=== PATIENT | male | born 1940 | race Caucasian/White ===

== ENCOUNTER 2019-08-17 23:45 | Inpatient (IN) | payer MEDICARE, BC ==
[~2019-08-17] VITALS: Ht 177.8 cm; Wt 66.2 kg
[~2019-08-17 23:45] MED LIST: ATOR40TA PO; LEVO50TA8 PO; SUCR1ORA4 PO; VALS320T2 PO
--- NOTE | 2019-08-18 00:13 | NUR ---
SATISH, PER SON, PT IS RECENTLY INCONTINENT, "VERY SHAKY AND WEAK", PT IS BEING SEEN BY A NUEROLOGIST "N THE PROCESS OF BEING DIAGNOSED WITH DEMENTIA", RESTING COMFORTABLY IN BED 1 AWAITING MED EVAL
--- NOTE | 2019-08-18 01:26 | NUR ---
BLOOD DRAWN, URINE COLLECTED AND SET TO LAB
[2019-08-18 01:31] LABS: BASOPHILS % (AUTO) 0.7 % (0.0-2.0); EOSINOPHILS % (AUTO) 2.7 % (0.0-6.0); HEMATOCRIT 37 % (39-51); HEMOGLOBIN 12.3 g/dL (13.5-17.5); LYMPHOCYTES # (AUTO) 1.7 /CMM (0.8-4.8); LYMPHOCYTES % (AUTO) 26.3 % (20.0-44.0); MEAN CORPUSCULAR HGB CONC 34 g/dl (31.0-36.0); MEAN CORPUSCULAR VOLUME 90 fL (80-96); MONOCYTES # (AUTO) 0.7 /CMM (0.1-1.30); MONOCYTES % (AUTO) 11.3 % (2.0-12.0); NEUTROPHILS # (AUTO) 3.8 /CMM (1.8-8.9); PLATELET COUNT (AUTO) 177 /CMM (150-450); RED BLOOD CELL COUNT(AUTO) 4.03 MIL/uL (4.5-6.0); WHITE BLOOD COUNT (AUTO) 6.4 K/uL (4.3-11.0)
[2019-08-18 01:34] LABS: APPEARANCE,URINE Clear (CLEAR); BILIRUBIN,URINE Negative (NEGATIVE); BLOOD, URINE Trace-intact Ery/uL (NEGATIVE); COLOR,URINE Yellow (YELLOW); KETONES,URINE Negative (NEGATIVE); LEUKOCYTE ESTERASE ,URINE Negative (NEGATIVE); NITRITE, URINE Negative (NEGATIVE); PH,URINE 8.5 (5.0-8.0); PROTEIN,URINE 100 mg/dl (NEGATIVE); UGLUCOSE Negative (NEGATIVE); UROBILINOGEN,URINE 0.2 EU/dL (0.2)
[2019-08-18 02:04] LABS: CALCIUM, SERUM 9.6 mg/dL (8.5-10.1); CHLORIDE 111 mmol/L (98-107); CREATININE 2.9 mg/dL (0.6-1.3); GLUCOSE 132 mg/dL (74-106); SODIUM SERUM 156 mmol/L (136-145); UREA NITROGEN, BLOOD 58 mg/dL (7-18)
[2019-08-18 02:05] LABS: CARBON DIOXIDE 42 mmol/L (21-32)
[2019-08-18 02:10] LABS: ALANINE AMINOTRANSFERASE 27 U/L (12-78); ALBUMIN 4.1 g/dL (3.4-5.0); ALCOHOL, BLOOD < 3 mg/dL (0-0); ALKALINE PHOSPHATASE 69 U/L (46-116); ASPARTATE AMINOTRANSFERASE 28 U/L (15-37); BILIRUBIN,DIRECT 0.2 mg/dL (0.0-0.2); BILIRUBIN,TOTAL 0.4 mg/dL (0.2-1.0); TOTAL PROTEIN, SERUM 7.7 g/dL (6.4-8.2)
[2019-08-18 02:13] LABS: BACTERIA,URINE None seen /HPF (None Seen); RBC,URINE 0-2 /HPF (0-2); SQUAMOUS EPITHELIAL CELL,UR Few /HPF (None Seen); WBC,URINE 0-2 /HPF (0-3)
[2019-08-18 02:32] LABS: THYROID STIMULATING HORMONE 1.034 uIU/mL (0.358-3.74)
[2019-08-18] MEDS ORDERED: IV 1/2NS 1000 ML 1,000 ML IV PRN (03:18)
--- NOTE | 2019-08-18 03:29 | NUR ---
ER MD AT BEDSIDE TALKING TO PT AND PT SON.
[2019-08-18] MEDS ORDERED: ACETAMINOPHEN 325 MG TABLET PO PRN (03:30)
[2019-08-18] MEDS ORDERED: MAG HYDROX/AL HYDROX/SIMETH 30 ML UDC PO PRN (03:30)
[2019-08-18] MEDS ORDERED: MAGNESIUM HYDROXIDE 30 ML UDC PO PRN (03:30)
[2019-08-18] MEDS ORDERED: Z GUARD REMEDY 2 OZ OINT TP PRN (03:30)
[2019-08-18] MEDS ORDERED: ONDANSETRON HCL/PF 4 MG/2 ML VIAL IVP PRN (03:30)
--- NOTE | 2019-08-18 03:31 | NUR ---
TELE [id number]
--- NOTE | 2019-08-18 04:26 | NUR ---
CALLED IN REPORT TO KIMBERLY HERNANDEZ
--- NOTE | 2019-08-18 04:53 | NUR ---
TRANSPORTED PT TO [facility]LO[facility]
[2019-08-18 05:03] VITALS: BP 157/86
[2019-08-18 05:04] VITALS: BP 154/86
--- NOTE | 2019-08-18 05:15 | NUR ---
RN NOTES ADMITTED PATIENT FROM ER, ACCOMPANIED BY IZA MA JR. PATIENT IS ALERT ORIENTED X1, EPISODES OF CONFUSION, INITIAL ASSESSMENT DONE, ADMISSION INITIATED, ORIENTED PATIENT TO UNIT, SAFETY MEASURES IN PLACE, ASPIRATION PRECAUTION EMPHASIZED, IV ACCESS INTACT AND PATENT, WILL CONTINUE TO MONITOR ACCORDINGLY.
--- NOTE | 2019-08-18 07:37 | NUR ---
RN NOTES ALL NEEDS ATTENDED, SAFETY MEASURES EMPHASIZED, RESTING AT THIS TIME. ENDORSED TO AM NURSE FOR CONTINUITY OF CARE.
[2019-08-18 08:00] VITALS: BP 155/75
--- NOTE | 2019-08-18 08:00 | NUR ---
RN NOTES RECEIVED PATIENT IN THE BED TELE [id number] NO ACUTE RESPIRATORY DISTRESS, AWAKE, PATIENT A/O X1, CONFUSED, NEED CONSTANT REDIRECTION. PATIENT DEMENTED, NO COMPLAINING OF PAIN, PATIENT HAS IV ACCESS ON RIGHT FA INFUSING NS AT 50 ML/HR. PATIENT HAS DISCOLORATION OF LEFT ARM BECAUSE OF FALL AT HOME TWO DAYS AGO. ADMINISTERED SCHEDULED MEDICATION. PATIENT INCONTINENT BOWEL AND BLADER WEARING DIAPER, NEEDS ATTENDED AND ANTICIPATED, CALL LIGHT WITHIN TO REACH, SAFETY PRECAUTION MAINTAINED ALL THE TIME.
[2019-08-18] MEDS: SUCRALFATE 1 G/10 ML UDC PO SCH (08:42)
[2019-08-18] MEDS: LEVOTHYROXINE SODIUM 50 MCG TABLET PO SCH (08:42)
[2019-08-18] MEDS: ATORVASTATIN 40 MG TABLET PO SCH (08:42)
[2019-08-18] MEDS: IV 1/2NS 1000 ML 1,000 ML IV PRN (08:45)
--- NOTE | 2019-08-18 10:00 | NUR ---
rn notes d/c tele per Dr Gibbons, patient med/surge at this time.
--- NOTE | 2019-08-18 12:00 | NUR ---
RN NOTES SEEN PATIENT BY HOSPITALIST HOLLY HUMAN RESOURCES TALENT MANAGER, FAMILY NEXT TO THE BED, PATIENT HAS NEW ORDER CT OF HEAD COKEMAN BY PLANT [employer]ER.
--- NOTE | 2019-08-18 12:20 | NUR ---
RN NOTES PATIENT BACK FROM CT AT THIS TIME, EATING LUNCH NO ACUTE RESPIRATORY DISTRESS. INFUSING NS AT 80 ML/HR ON RIGHT FA INTACT. CONTINUED MONITORING.
--- NOTE | 2019-08-18 18:30 | NUR ---
RN NOTES PATIENT HAS A SUNDOWN SYNDROME , CONFUSED, TRYING TO CLIME OUT OF BED. NEED CONSTANT REDIRECTION. 1:1 SITTER NEXT TO THE BED FOR SAFETY. INFUSING NS1/2 80 ML/HR ON RIGHT FA INTACT, CALL LIGHT WITHIN TO REACH. ENDORSED ONCOMING NURSE FOLLOW PLAN OF CARE.
--- NOTE | 2019-08-18 19:30 | NUR ---
MS RN OPENING NOTE RECEIVED PATIENT IN BED. A./O X1, VERY CONFUSED. TOLERATING ROOM AIR. RESPIRATIONS ARE EVEN AND UNLABORED. NO SIGN OF SOB. DENIES PAIN AT THIS TIME. NO APPARENT DISTRESS. IV ACCESS IN RFA #20 RUNNING 1/2NS@80ML/HR. BED IS LOW AND LOCKED, SIDE RAILS UP X3, SITTER AT BEDSIDE. CALL LIGHT WITHIN REACH. WILL CONTINUE TO MONITOR.
[2019-08-18 20:00] VITALS: BP 14/59
[2019-08-19] MEDS: IV 1/2NS 1000 ML 1,000 ML IV PRN ×2 (02:23→12:57)
--- NOTE | 2019-08-19 06:21 | NUR ---
MS RN CLOSING NOTE PATIENT IN BED. A./O X1, VERY CONFUSED. REMAINS TOLERATING ROOM AIR. RESPIRATIONS ARE EVEN AND UNLABORED. NO SOB NOTED. NO C/O PAIN. NO DISTRESS NOTED. IV ACCESS MAINTAINED IN RFA #20 RUNNING 1/2NS@80ML/HR. BED REMAINS LOW AND LOCKED, SIDE RAILS UP X3, SITTER AT BEDSIDE. CALL LIGHT WITHIN REACH. WILL ENDORSE TO NEXT SHIFT FOR ESAU.
[2019-08-19 07:00] LABS: BASOPHILS % (AUTO) 0.4 % (0.0-2.0); EOSINOPHILS % (AUTO) 3.6 % (0.0-6.0); HEMATOCRIT 31 % (39-51); HEMOGLOBIN 10.5 g/dL (13.5-17.5); LYMPHOCYTES # (AUTO) 1.9 /CMM (0.8-4.8); MEAN CORPUSCULAR HGB CONC 34 g/dl (31.0-36.0); MEAN CORPUSCULAR VOLUME 91 fL (80-96); MONOCYTES # (AUTO) 0.8 /CMM (0.1-1.30); MONOCYTES % (AUTO) 10.8 % (2.0-12.0); NEUTROPHILS % (AUTO) 57.2 % (43.0-81.0); PLATELET COUNT (AUTO) 137 /CMM (150-450); RED BLOOD CELL COUNT(AUTO) 3.39 MIL/uL (4.5-6.0); WHITE BLOOD COUNT (AUTO) 6.9 K/uL (4.3-11.0)
[2019-08-19 07:15] LABS: CHOLESTEROL 98 mg/dL (<200); CREATINE KINASE, TOTAL 154 U/L (39-308); HDL CHOLESTEROL 43 mg/dL (40-60); LDL 44 mg/dL (0-99); THYROID STIMULATING HORMONE 0.879 uIU/mL (0.358-3.74); TRIGLYCERIDES 51 mg/dL (30-150)
[2019-08-19 08:00] VITALS: BP 130/52
--- NOTE | 2019-08-19 08:00 | NUR ---
m/s gis professor: initial assessment received pt in bed awake, alert and oriented to self only with confusion and disorientation to time, place, and situation. reality orientation provided prn. sitter at bedside for safety. vss; afebrile. will continue to monitor.
[2019-08-19 08:55] LABS: ALANINE AMINOTRANSFERASE 18 U/L (12-78); ALBUMIN 3.2 g/dL (3.4-5.0); ALKALINE PHOSPHATASE 56 U/L (46-116); ASPARTATE AMINOTRANSFERASE 26 U/L (15-37); BILIRUBIN,TOTAL 0.5 mg/dL (0.2-1.0); CALCIUM, SERUM 8.9 mg/dL (8.5-10.1); CARBON DIOXIDE 25 mmol/L (21-32); CHLORIDE 109 mmol/L (98-107); CREATININE 2.7 mg/dL (0.6-1.3); GLUCOSE 88 mg/dL (74-106); MAGNESIUM 1.8 mg/dL (1.8-2.4); PHOSPHORUS 2.8 mg/dL (2.5-4.9); POTASSIUM 3.7 mmol/L (3.5-5.1); SODIUM SERUM 147 mmol/L (136-145); TOTAL PROTEIN, SERUM 6.2 g/dL (6.4-8.2); UREA NITROGEN, BLOOD 43 mg/dL (7-18)
--- NOTE | 2019-08-19 09:30 | NUR ---
m/s cable technician: md visit seen and examined by dr. madrigal at this time.
[2019-08-19] MEDS: LEVOTHYROXINE SODIUM 50 MCG TABLET PO SCH (09:43)
[2019-08-19] MEDS: SUCRALFATE 1 G/10 ML UDC PO SCH (09:43)
[2019-08-19] MEDS: ATORVASTATIN 40 MG TABLET PO SCH (09:43)
--- NOTE | 2019-08-19 11:00 | NUR ---
m/s magazine editor: nephro f/u family at bedside. dr. enamorado at bedside and talking to family. all questions and concerns from sister and son answered.
--- NOTE | 2019-08-19 11:30 | NUR ---
m/s director food and beverage: neuro consult seen and examined by luis rodrigues (zigzag elastic attacher). family remains at bedside. all question and concerns answered by neurologist.
[2019-08-19 13:27] LABS: APPEARANCE,URINE Clear (CLEAR); BILIRUBIN,URINE Negative (NEGATIVE); BLOOD, URINE Negative Ery/uL (NEGATIVE); COLOR,URINE Yellow (YELLOW); KETONES,URINE Negative (NEGATIVE); LEUKOCYTE ESTERASE ,URINE Negative (NEGATIVE); NITRITE, URINE Negative (NEGATIVE); PH,URINE 8.5 (5.0-8.0); PROTEIN,URINE >=300 mg/dl (NEGATIVE); UGLUCOSE Negative (NEGATIVE); UROBILINOGEN,URINE 0.2 EU/dL (0.2)
--- NOTE | 2019-08-19 14:00 | NUR ---
m/s condominium manager: notes resting comfortable in bed. pt remains confused and disoriented. reality orientation provided prn. sitter remains at bedside.
[2019-08-19 16:25] LABS: CREATININE, URINE 81.4 MG/DL (30.0-125.0); URINE TOTAL PROTEIN 152.1 mg/dL (0-11.9)
[2019-08-19 17:00] VITALS: BP 154/107
[2019-08-19 17:14] LABS: EOSINOPHIL,URINE None Seen
--- NOTE | 2019-08-19 18:50 | NUR ---
m/s ssis etl developer: notes son came back to visit for a few minutes and then left. pt resting comfortable. needs attended. no distress noted.
--- NOTE | 2019-08-19 19:02 | NUR ---
Patient awake, A/O x 2 with episodes of confusion. IV fluid running as ordered, IV line remains intact and patent. Patient on room air , no distress noted, no complain of pain. All needs attended, patient kept comfortable. Sitter at bedside. Safety precautions observed. Will endorse to next shift for ESAU.
[2019-08-19 20:00] VITALS: BP 136/78
--- NOTE | 2019-08-19 20:30 | NUR ---
RN MS OPENING NOTES RECEIVED PATIENT IN BED AWAKE, ALERT AND ORIENTED X1, CONFUSED. VERBALLY RESPONSIVE. BREATHING EVEN AND UNLABORED. NO SOB NOTED. ON ROOM AIR. DENIES PAIN OR DISCOMFORT. IV INTACT AND PATENT WITH IVF INFUSING. SITTER AT BEDSIDE FOR SAFETY. ALL OTHER NEEDS ATTENDED TO. SAFETY MEASURES IN PLACE. CALL LIGHT WITHIN REACH. WILL CONTINUE TO MONITOR.
[2019-08-20] MEDS: IV 1/2NS 1000 ML 1,000 ML IV PRN ×2 (03:10→16:16)
[2019-08-20 06:34] LABS: BASOPHILS % (AUTO) 0.5 % (0.0-2.0); EOSINOPHILS % (AUTO) 4.7 % (0.0-6.0); HEMATOCRIT 34 % (39-51); HEMOGLOBIN 11.2 g/dL (13.5-17.5); LYMPHOCYTES # (AUTO) 1.9 /CMM (0.8-4.8); LYMPHOCYTES % (AUTO) 30.2 % (20.0-44.0); MEAN CORPUSCULAR HGB CONC 33 g/dl (31.0-36.0); MEAN CORPUSCULAR VOLUME 91 fL (80-96); MONOCYTES # (AUTO) 0.6 /CMM (0.1-1.30); MONOCYTES % (AUTO) 9.9 % (2.0-12.0); NEUTROPHILS # (AUTO) 3.5 /CMM (1.8-8.9); NEUTROPHILS % (AUTO) 54.7 % (43.0-81.0); PLATELET COUNT (AUTO) 128 /CMM (150-450); RED BLOOD CELL COUNT(AUTO) 3.71 MIL/uL (4.5-6.0); WHITE BLOOD COUNT (AUTO) 6.4 K/uL (4.3-11.0)
[2019-08-20 06:45] LABS: CALCIUM, SERUM 8.9 mg/dL (8.5-10.1); CARBON DIOXIDE 27 mmol/L (21-32); CHLORIDE 108 mmol/L (98-107); CREATININE 2.7 mg/dL (0.6-1.3); GLUCOSE 89 mg/dL (74-106); MAGNESIUM 1.6 mg/dL (1.8-2.4); PHOSPHORUS 3.1 mg/dL (2.5-4.9); POTASSIUM 3.7 mmol/L (3.5-5.1); SODIUM SERUM 143 mmol/L (136-145); UREA NITROGEN, BLOOD 43 mg/dL (7-18)
--- NOTE | 2019-08-20 06:52 | NUR ---
RN MS CLOSING NOTES PATIENT RESTING IN BED. NO ACUTE CHANGES THROUGHOUT SHIFT. BREATHING EVEN AND UNLABORED. NO SOB NOTED. ON ROOM AIR. DENIES PAIN OR DISCOMFORT. IV INTACT AND PATENT WITH IVF INFUSING. SITTER AT BEDSIDE FOR SAFETY. ALL OTHER NEEDS ATTENDED TO. SAFETY MEASURES IN PLACE. CALL LIGHT WITHIN REACH. WILL ENDORSE TO ONCOMING NURSE FOR ESAU.
[2019-08-20] MEDS: SUCRALFATE 1 G/10 ML UDC PO SCH (08:02)
[2019-08-20] MEDS: LEVOTHYROXINE SODIUM 50 MCG TABLET PO SCH (08:02)
[2019-08-20] MEDS: ATORVASTATIN 40 MG TABLET PO SCH (08:02)
--- NOTE | 2019-08-20 09:44 | NUR ---
RN MS OPENING NOTES Patient received on room air, no sob noted, patient a/o x2, mild confusion. RFA #20 with 1/2 NS @ 80 ml per hour. Patient with 1:1 sitter at all times. Bed at the lowest setting, call light within reach, side rails up x2.
[2019-08-20 11:07] LABS: *SPE A/G RATIO 1.4 (0.7-1.7); *SPE ALBUMIN 3.3 g/dL (2.9-4.4); *SPE ALPHA-1-GLOBULIN 0.2 g/dL (0.0-0.4); *SPE ALPHA-2-GLOBULIN 0.5 g/dL (0.4-1.0); *SPE BETA GLOBULIN 0.7 g/dL (0.7-1.3); *SPE GLOBULIN, TOTAL 2.4 g/dL (2.2-3.9); *SPE M-SPIKE Not Observed g/dL (Not Observed)
[2019-08-20 12:07] LABS: PTH, INTACT 139 pg/mL (15-65)
--- NOTE | 2019-08-20 18:13 | NUR ---
RN MS CLOSING NOTES Patient remains on room air, no sob noted, patient remains a/o x1. Awaiting neuro eval at this time. Patient's bed remains at the lowest setting, call light within reach, side rails up x2, patient with 1:1 sitter at all times. Will give report to NOC RN for ESAU bedside.
--- NOTE | 2019-08-20 19:15 | NUR ---
RN OPENING NOTES RECEIVED PATIENT FROM ERNESTINE, DAVID, IN BED, AWAKE RESTING COMFORTABLY. PATIENT IS A/O X 1, CONFUSED. NO SIGNS OF RESPIRATORY DISTRESS. NO SHORTNESS OF BREATH, ON ROOM AIR, TOLERATING WELL. PATIENT DENIES PAIN OR DISCOMFORT AT THIS TIME. IV SITE INTACT AND PATENT WITH NO INFECTION/INFILTRATION, WITH IVF INFUSING. ALL NEEDS MET AT THIS TIME. SITTER AT BED SIDE FOR SAFETY. SAFETY PRECAUTIONS IMPLEMENTED; CALL LIGHT WITHIN REACH, BED LOWEST POSITION, BED LOCKED, SIDE RAILS UP X2. WILL CONTINUE TO MONITOR.
[2019-08-20 20:00] VITALS: BP 139/68
[2019-08-21] MEDS: IV 1/2NS 1000 ML 1,000 ML IV PRN (00:30)
--- NOTE | 2019-08-21 06:49 | NUR ---
RN CLOSING NOTES PATIENT IS CURRENTLY RESTING IN BED, EASILY AROUSABLE TO VOICE. NO ACUTE CHANGES THROUGHOUT THE SHIFT. NO SIGNS OF RESPIRATORY DISTRESS. BREATHING EVEN AND UNLABORED, NO SOB NOTED, TOLERATING ROOM AIR. NO SIGNS OF FACIAL GRIMACING OR DISCOMFORT INDICATING PAIN. IV SITE INTACT AND PATENT WITH IVF INFUSING WELL, NO SIGNS OF INFECTION/INFILTRATION. SITTER AT BED SIDE FOR SAFETY. ALL NEEDS MET AT THIS TIME. SAFETY PRECAUTIONS IMPLEMENTED; CALL LIGHT WITHIN REACH, BED LOWEST POSITION, BED LOCKED, SIDE RAILS UP X2. WILL ENDORSE TO DAYSHIFT NURSE FOR CONTINUITY OF CARE.
[2019-08-21 07:30] VITALS: BP 139/78
--- NOTE | 2019-08-21 07:49 | NUR ---
RN MS OPENING NOTES Patient received on room air, no sob noted, sitter bedside at all times, sleeping comfortably and easily awakened. R FA #20 with 1/2 NS@80 ml per hour. Bed at the lowest setting, call light within reach, side rail up x2.
[2019-08-21] MEDS: ATORVASTATIN 40 MG TABLET PO SCH (08:24)
[2019-08-21] MEDS: SUCRALFATE 1 G/10 ML UDC PO SCH (08:24)
[2019-08-21] MEDS: LEVOTHYROXINE SODIUM 50 MCG TABLET PO SCH (08:24)
[2019-08-21 16:23] VITALS: BP 137/71
--- NOTE | 2019-08-21 18:51 | NUR ---
RN CLOSING NOTES Patient remains on room air, no sob noted, patient remains a/o x1 and acts confused at times. Patient remains with RFA #20, 1/2 NS @ 80 mL per hour. Patient pending discharge to [facility]. Awaiting call from facility. Bed at the lowest setting, call light within reach, side rails up x2. Will give report to NOC Rn for ESAU bedside.
--- NOTE | 2019-08-21 20:33 | NUR ---
RN NOTES PATIENT WAS DISCHARGED AT 1949 TO [facility]. SISTER, JOSE, TRANSPORTED HIM. VITAL SIGNS STABLE PRIOR TO DISCHARGE. ESCORTED BY [facility]. REPORT GIVEN TO RAMONA FROM [facility].
--- NOTE | 2019-08-21 20:35 | NUR ---
RN NOTES PAPER WORK SIGNED. PATIENT LEFT VIA WHEELCHAIR ESCORT FROM [facility] BUCIO. PAPERWORK GIVEN TO SISTER GARCIA. IV SITE REMOVED. PATIENT LEFT IN STABLE CONDITION.
== END 2019-08-21 19:50 | disposition home or self-care (01) | DRG 682 ==
LOC: ER 23:45 → TELE 08-18 03:38 → MED 08-18 10:23
PROVIDERS: ADMIT Registered Nurse; ATTEND Student in an Organized Health Care Education/Training Program
DX: I12.0 Hypertensive chronic kidney disease with stage 5 chronic kidney disease or end stage renal disease (principal); N17.0 Acute kidney failure with tubular necrosis; G92 Toxic encephalopathy; N18.6 End stage renal disease; E87.0 Hyperosmolality and hypernatremia; J98.11 Atelectasis; E87.4 Mixed disorder of acid-base balance; K21.9 Gastro-esophageal reflux disease without esophagitis; F03.90 Unspecified dementia, unspecified severity, without behavioral disturbance, psychotic disturbance, mood disturbance, and anxiety; E11.22 Type 2 diabetes mellitus with diabetic chronic kidney disease; E03.9 Hypothyroidism, unspecified; R62.7 Adult failure to thrive; Z66 Do not resuscitate; Z99.2 Dependence on renal dialysis; Z88.0 Allergy status to penicillin; Z79.899 Other long term (current) drug therapy; W19.XXXA Unspecified fall, initial encounter; Y92.9 Unspecified place or not applicable; R32 Unspecified urinary incontinence; Z87.891 Personal history of nicotine dependence; S09.90XA Unspecified injury of head, initial encounter; E78.5 Hyperlipidemia, unspecified; D64.9 Anemia, unspecified; E86.1 Hypovolemia; E11.40 Type 2 diabetes mellitus with diabetic neuropathy, unspecified
CPT/HCPCS: 36415; 70450-TC; 71045-TC; 72170-TC; 80048-TC; 80053-TC; 80061-TC; 80076-TC; 80305; 81000-TC; 82550-TC; 82570-TC; 83735-TC; 83970; 84100-TC; 84155; 84155-TC; 84165; 84207; 84300-TC; 84443-TC; 84484-TC; 85025-TC; 85730-TC; 87081-TC; 93307-TC; 93880-TC; 97110-TC; 97112-TC; 97116-TC; 97530-TC; 97535-TC; G0378; G0480; J3490